=== PATIENT | male | born 1950 | race Caucasian/White ===

== ENCOUNTER → 2025-04-24 10:42 | Outpatient (REF) | payer OTHER, SELFPAY | LOC: RAD 10:42 | PROVIDERS: ATTENDING PHYSICIAN Physician Assistant Medical; FAMILY PHYSICIAN Family Medicine | DX: J18.9 Pneumonia, unspecified organism (principal) | CPT/HCPCS: 71046 ==

== ENCOUNTER 2025-04-27 14:09 | Emergency (ER) | payer OTHER, SELFPAY ==
[2025-04-27 14:15] VITALS: BP 146/79
[2025-04-27 14:49] LABS: % Basophils 0.9 % (0-2); % Eosinophils 2.2 % (0-6); % Immature Granulocytes 0.7 % (0-0.5); % Lymphocytes 19.1 % (20.5-51.1); % Monocytes 4.8 % (1.7-9.3); % Neutrophils 72.3 % (42.2-75.2); Absolute Basophils 0.1 10^3/uL (0-0.2); Absolute Eosinophils 0.2 10^3/uL (0-0.7); Absolute Immature Granulocytes 0.1 10^3/uL (0-0.05); Absolute Monocytes 0.5 10^3/uL (0.1-0.6); Absolute Neutrophils 7.7 10^3/uL (1.4-6.5); Hematocrit 42.7 % (39.0-52.0); Hemoglobin 14.6 g/dL (13.0-18.0); Mean Corp Hgb Conc. 34.2 g/dL (33.0-37.0); Mean Corpuscular Hgb 30.4 pg (27.0-31.0); Mean Platelet Volume 9.4 fL (7.4-10.4); Nucleated Red Blood Cells % 0 % (-); Platelet Count 202 10^3/uL (130-400); Red Cell Dist. Width 12.7 % (11.5-14.5); White Blood Cell Count 10.7 10^3/uL (4.8-10.8)
[2025-04-27 15:07] LABS: ALT (SGPT) 25 U/L (0-50); AST (SGOT) 27 U/L (17-59); Albumin 4.1 g/dl (3.5-5.0); Alkaline Phosphatase 76 U/L (38-126); Blood Urea Nitrogen 17 mg/dl (9-20); Calcium 8.9 mg/dl (8.4-10.2); Carbon Dioxide 27 mmol/L (22-30); Chloride 109 mmol/L (98-107); Glucose 190 mg/dl (70-99); Potassium 5.1 mmol/L (3.5-5.1); Sodium 142 mmol/L (135-145); Total Bilirubin 0.8 mg/dl (0.2-1.3); Total Protein 6.6 g/dl (6.3-8.2); eGFR > 60.00
--- NOTE | 2025-04-27 16:10 | ED.GENMED ---
History of Present Illness
General
Chief Complaint: Breathing Problem
Time Seen by Provider: 04/27/25 15:19
History of Present Illness
History of Present Illness:
Note:
CHIEF COMPLAINT(S)
Persistent cough and shortness of breath.
HISTORY OF PRESENT ILLNESS
The patient is a 74-year-old male presenting with a persistent cough and shortness of breath. He reports that the cough has been present intermittently for most of the current year. The symptoms significantly worsened two weeks ago following a
weekend trip to a wedding. The patient visited his primary care physician, who prescribed an unspecified medication that did not alleviate the symptoms. An X-ray prompted a referral to the emergency department. Although the patient experiences
breathlessness during physical activity, particularly when walking around, he does not report any swelling of the legs. The patient recalls becoming ill at the end of last year but cannot specify the nature of that illness. His father of a
heart attack at 42, though he personally has no known cardiac history.
CHRONIC MEDICAL CONDITIONS SIGNIFICANTLY AFFECTING CARE
None reported.
SOCIAL DETERMINANTS AFFECTING HEALTH
None reported.
SOCIAL HISTORY
The patient states he has occasionally smoked pipes but not habitually.
REVIEW OF SYSTEMS
- Respiratory: Persistent cough and shortness of breath upon exertion.
- Cardiovascular: No personal history of cardiac problems, although family history is significant for heart disease.
- General: No reported leg swelling.
PHYSICAL EXAM
- GEN: WDWN, no distress
- HEENT: Clear oropharynx, no nasal discharge
- Respiratory: Dry crackles heard at the bases of the lungs.
- Cardiovascular: Heart regular in rhythm with no murmurs. No peripheral edema or Jugular Venous Distention noted.
Nursing notes reviewed and vital signs reviewed.
PROBLEM LIST
- Acute: Persistent cough, Shortness of breath
- Chronic: None mentioned
PLAN
The plan includes ordering a Computed Tomography scan to better ascertain the nature of the lung inflammation, conducting additional blood tests, and performing a walk test in the emergency room to observe changes in oxygen saturation. Depending on
the results, the likely management includes potential discharge and follow-up or, if indicated by the CT findings, possible admission to see a foreign exchange dealer, and consideration of steroid therapy to alleviate symptoms. A bronchoscopy and a biopsy
might be future considerations, though not immediate.
DIFFERENTIAL DIAGNOSIS
The Differential Diagnosis includes, in no particular order and is not limited to:
1. Pulmonary fibrosis
2. Interstitial pneumonitis
3. Chronic obstructive pulmonary disease
4. Atypical pneumonia
5. Tuberculosis
6. Heart failure
7. Acute bronchitis
8. Sarcoidosis
9. Asbestosis
10. Drug-induced lung disease
Disposition:
DIAGNOSIS
- Interstitial pneumonitis (ICD-10: J84.9)
SUMMARY OF ENCOUNTER
The patient, a 34-year-old male, presented to the emergency department with a history of shortness of breath and a dry cough persisting for at least six months. An outpatient chest x-ray had shown interstitial pneumonitis, and a CT scan performed in
the emergency department confirmed diffuse pneumonitis. Laboratory testing indicated a negative BNP, pointing towards a pulmonary etiology rather than a cardiac one. The patients symptoms did not suggest a current infection, so antibiotics were
deemed unnecessary.
PLAN
The patient will be started on a corticosteroid taper, given his chronic use of low-dose steroids. He will also be referred for outpatient follow-up with a foreign exchange dealer.
INDEPENDENT INTERPRETATION OF TESTS
- My independent interpretation of the CT confirms diffuse pneumonitis.
- My independent interpretation of the BNP is negative, indicating a pulmonary etiology rather than cardiac.
PATIENT EDUCATION AND COUNSELING
The patient was informed about the diagnosis of interstitial pneumonitis and the rationale for initiating a corticosteroid taper. The importance of follow-up with a foreign exchange dealer was emphasized to monitor his condition and adjust treatment as
necessary.
FOLLOW-UP INSTRUCTIONS
The patient is referred to outpatient pulmonology for follow-up to further evaluate and manage the condition.
MEDICATION RECONCILIATION
The patient will start on a corticosteroid taper as part of the treatment regimen.
MEDICAL DECISION MAKING
Number and Complexity of Problems Addressed: The patients chronic respiratory symptoms and the recent imaging findings of interstitial pneumonitis required a thorough assessment and a detailed management plan. The decision not to start antibiotics
was based on the lack of infectious signs.
Data: The review and analysis of imaging studies and the BNP were pivotal in directing the diagnosis and treatment, confirming a pulmonary pathophysiology.
Risk: Considerations included potential corticosteroid side effects and the need for monitoring by a foreign exchange dealer.
Past History
Past History
ED Past Medical History: HTN, NIDDM and Other
ED Past Surgical History: Other
Phy Exam
Physical Exam
Physical Exam:
.
Scores
Heart Failure Risk
Heart Failure Risk Score: Not Applicable
Course
Orders/Labs/Results
Orders:
Orders
04/27/25 14:18
Electrocardiogram (*1) Urgent
Reason for Study: Shortness of Breath
EKG- Treatment ONCE
04/27/25 14:28
Complete Blood Count/With Diff Urgent
Comprehensive Metabolic Panel Urgent
NT-proBNP Urgent
Comment: ADD ON
04/27/25 16:10
Add On- LAB Urgent
Tests Added?: BNP
CT Chest W/o Iv Contrast Urgent
Comment:
Reason For Exam: dyspnea, pneumonitis
04/27/25 18:57
Prednisone [Deltasone] 40 mg PO NOW STA
Abnormal Lab Results
04/27/25
14:28
Abs Immat Gran (auto) 0.1 H 10^3/uL
(0-0.05)
Absolute Neuts (auto) 7.7 H 10^3/uL
(1.4-6.5)
Immature Gran % 0.7 H %
(0-0.5)
Lymphocytes % 19.1 L %
(20.5-51.1)
Chloride 109 H mmol/L
(98-107)
Glucose 190 H mg/dl
(70-99)
04/27/25 14:28
04/27/25 14:28
Vital Signs
Initial and Last Documented VS:
Initial Vital Signs
Temp Pulse Resp BP Pulse Ox
98.0 F 68 16 146/79 96
04/27/25 14:15 04/27/25 14:15 04/27/25 14:15 04/27/25 14:15 04/27/25 14:15
Last Documented Vital Signs
Temp Pulse Resp BP Pulse Ox
98.0 F 60 22 140/69 95
04/27/25 14:15 04/27/25 19:00 04/27/25 19:00 04/27/25 18:00 04/27/25 19:00
*Pulse Oximetry
Patient hypoxic: no
Comment: 96%
*Critical Care Note
Total Time (30-74mins, 75-104mins- exclusive of procedures): Not Applicable
ED Attending Note
-
Portions of this chart may have been created with voice recognition software.� Occasional wrong word or��sound alike� substitutions may have occurred due to the inherent limitations of voice recognition software.
Discharge Plan
Departure
Patient Disposition: Home (Routine Discharge)
Date of Disposition: 04/27/25
Time of Disposition: 18:55
Patient with high blood pressure during this ER visit?: No
Discharge Problem:
Interstitial pneumonitis
Instructions: Shortness of breath in adults - ED discharge instructions
Prescriptions:
New
prednisone 10 mg tablet
10 mg PO DIRECTED Qty: 30 0RF
Rx Instructions:
40mg PO qd 3d, then 30mg PO qd x 3d, then 20mg PO qd x 3d, then 10mg PO qd x 3d
No Action
pioglitazone 15 MG tablet
15 mg PO HS
atorvastatin 20 MG tablet
20 mg PO HS
levothyroxine 150 MCG tablet
150 mcg PO DAILY
hydrocortisone 20 MG tablet
10 mg PO HS
hydrocortisone 20 MG tablet
20 mg PO DAILY
lisinopril-hydrochlorothiazide 1 EACH tablet
1 ea PO DAILY
sitagliptin phosphate [Januvia] 100 MG tablet
100 mg PO DAILY
testosterone [Axiron] 30 MG/1.5 ML solution in metered pump w/shena
2 unit DAILY
Referrals:
Vinod Gimenez MD [Active, Pulmonary Medicine] - Call in 1-3 days for appt
Maicol Heart DO [Family Provider, Family Practice]
Interventions
Interventions:
*Risk Screen - Suicide Last Done: 04/27/25 14:15
*General Assessment Last Done: 04/27/25 17:26
*Neglect/Abuse Screening Last Done: 04/27/25 14:15
*ED- Fall Risk Assessment Last Done: 04/27/25 17:26
*ED COVID-19 Vaccine History Last Done: 04/27/25 17:26
*Nursing Disposition Last Done: 04/27/25 19:14
ED- Cardiac Assessment Last Done: 04/27/25 17:26
ED- Pulmonary Assessment Last Done: 04/27/25 17:26
Discharge Date and Time
Discharge Date/Time: 04/27/25 19:14
Print Language: FINNISH
[2025-04-27 17:25] VITALS: BP 126/66
[2025-04-27 17:26] VITALS: BMI 33.5
[2025-04-27 17:32] LABS: NT-proBNP 77.2 pg/ml
[2025-04-27 18:00] VITALS: BP 140/69
[2025-04-27] MEDS: DELTASONE 40 MG PO (19:05)
== END 2025-04-27 19:14 | disposition home or self-care (01) ==
LOC: EMR 14:09
PROVIDERS: Emergency Medicine; EMERGENCY PHYSICIAN Student in an Organized Health Care Education/Training Program; FAMILY PHYSICIAN Family Medicine
DX: J84.89 Other specified interstitial pulmonary diseases (principal); F17.290 Nicotine dependence, other tobacco product, uncomplicated
CPT/HCPCS: 99285; 71250; 80053; 83880; 85025; 93005

== ENCOUNTER → 2025-06-12 07:24 | Outpatient (REF) | payer OTHER, SELFPAY | LOC: RCS 07:24 | PROVIDERS: ATTENDING PHYSICIAN Internal Medicine; FAMILY PHYSICIAN Family Medicine | DX: J84.9 Interstitial pulmonary disease, unspecified (principal) | CPT/HCPCS: 93306; Q9950 ==

== ENCOUNTER 2025-10-23 09:30 | Outpatient (RCR) | payer OTHER, SELFPAY | END 2025-10-23 23:59 | disposition home or self-care (01) | LOC: PURB 09:30 | PROVIDERS: ATTENDING PHYSICIAN Internal Medicine; FAMILY PHYSICIAN Family Medicine | DX: J84.9 Interstitial pulmonary disease, unspecified (principal) | CPT/HCPCS: G0237; G0239 ==

== ENCOUNTER 2025-10-25 11:19 | Inpatient (IN) | payer OTHER, SELFPAY ==
[2025-10-23] VITALS (12 sets, daily range): BP systolic 99–154; BP diastolic 58–79; PULSE 65; BMI 33.7; BMI 33.0
[2025-10-23 10:25] LABS: Hematocrit 45.1 % (39.0-52.0); Hemoglobin 15.5 g/dL (13.0-18.0); Mean Corp Hgb Conc. 34.4 g/dL (33.0-37.0); Mean Corpuscular Volume 87.4 fL (80.0-94.0); Nucleated Red Blood Cells % 0 % (-); Platelet Count 231 10^3/uL (130-400); Red Cell Dist. Width 12.8 % (11.5-14.5)
[2025-10-23 10:43] LABS: INR 1.08; PT 14.2 Sec (11.4-14.6)
[2025-10-23 10:47] LABS: ALT (SGPT) 20 U/L (0-50); AST (SGOT) 22 U/L (17-59); Albumin 4.1 g/dl (3.5-5.0); Alkaline Phosphatase 72 U/L (38-126); Blood Urea Nitrogen 20 mg/dl (9-20); Calcium 8.8 mg/dl (8.4-10.2); Carbon Dioxide 23 mmol/L (22-30); Chloride 104 mmol/L (98-107); Glucose 160 mg/dl (70-99); Potassium 4.4 mmol/L (3.5-5.1); Sodium 135 mmol/L (135-145); Total Protein 7.1 g/dl (6.3-8.2); eGFR > 60.00
--- NOTE | 2025-10-23 11:28 | ED.GENMED ---
History of Present Illness
General
Chief Complaint: Breathing Problem
Source: patient
Time Seen by Provider: 10/23/25 11:12
History of Present Illness
History of Present Illness:
31-year-old male presents to the emergency room after being sent here by pulmonary rehab. Patient went for his first pulmonary rehab visit and while obtaining his vital signs staff noted that the patient was hypoxic on room air with a pulse ox of
90%. He also noted that he was tachycardic with heart rate in the 140s. Patient states that over the past several days has been feeling much more short of breath with minimal exertion. He has been using his trilogy inhaler but has not used his
rescue inhaler. He does not use oxygen at home. Patient states he was recently diagnosed with pulmonary fibrosis. Patient does take prednisone because of pituitary surgery in the past. The dose of his hormone replacement has not changed based
upon his pulmonary fibrosis diagnosis. Patient is followed by Dr. Mi for pulmonary.
Past History
Past History
ED Past Medical History: HTN, NIDDM and Other
ED Past Surgical History: Other
Phy Exam
Physical Exam
Physical Exam:
General: Awake, Alert, Oriented X3. On increased work of breathing
Vitals: unremarkable
Head: Atraumatic
Eyes: Pupils equal, EOMI
Throat: Airway intact, no exudates
Neck: Trachea midline
Lungs: Crackles bilaterally
Heart: Regular rate, no murmurs
Abd: Soft, Nontender, No pulsatile mass
Neuro: Nonfocal
Skin: Warm, dry, no rash
Extremities: pulses equal b/l, no edema
Scores
Heart Failure Risk
Heart Failure Risk Score: Not Applicable
Course
Orders/Labs/Results
Orders:
Orders
10/23/25 10:02
Electrocardiogram (*1) Urgent
Reason for Study: Other
Other Reason for Exam: Respiratory Distress
EKG- Treatment ONCE
10/23/25 10:09
Complete Blood Count/With Diff Urgent
Comprehensive Metabolic Panel Urgent
Prothrombin Time Urgent
10/23/25 11:23
Ipratropium/Albuterol Sulfate [Duoneb] 3 ml INH R NOW STA
CR Chest - 2 Views Urgent
Comment:
Reason For Exam: sob, hypoxia
10/23/25 12:26
COVID-19 Antigen Urgent
Source: Nasal Swab
Influenza A+B Rapid Molecular Urgent
RAYO Source: Nasal Swab
Specimen Description:
10/23/25 Dinner
2000 calorie (17 carb) Diabetic
At Your Request: Limited Participation
Does patient need a safe tray?: No
10/23/25 15:16
Dexamethasone Sod Phosphate [Decadron] 10 mg IV NOW STA
10/23/25 15:46
Admit/Transfer Patient As Directed
Co-Sign Provider:
Level of Care: Observation services
Assign to:: Telemetry
Physician / Group: Htay
Diagnosis: Hypoxia / Tachycardia
Reason for Telemetry: Arrhythmia
Date to Stop Telemetry: 10/26/25
Time to Stop Telemetry: 11:00
10/23/25 15:47
PRN Pain Medication Management As Directed
May give lesser potent ordered pain med per pt: Yes
preference::
Protocol:: Medication orders for pain may be administered in a
manner that supports deferring to patient preference
when the pt is:
- Requesting an ordered lesser potent pain medication.
Least to most potent pain medications are defined
as: acetaminophen < NSAID < tramadol < opioids
(morphine, oxycodone, hydromorphone).
- Requesting a lesser dose of the same medication IF
ORDERED.
- Requesting a less intrusive route of administration
if both routes are prescribed by the provider (PO <
IV).
10/23/25 15:48
Code Status As Directed
Resuscitation Status: Full Code
10/23/25 16:02
CT Chest PE Study Urgent
Comment:
Reason For Exam: exertional dyspnea and tachycardia
10/23/25 16:13
NT-proBNP Urgent
Comment: ADD ON
Procalcitonin Urgent
If negative, will antibiotics be d/c'd or not started: Yes
Does the patient have renal or hepatic impairment?: No
Any recent (w/in 48 hrs) physiologic stress (CPR, rhabdo): No
10/23/25 17:59
Acetaminophen [Tylenol] 650 mg PO Q4HPRN PRN
Dextrose 50%-Water [Dextrose 50% Syringe] 12.5 grams IV [id number] PRN
Glucagon [GlucaGen] 1 mg IM PRN PRN
Insulin Aspart High Resistance [Novolog Flexpen-High Resistance] See Protocol SC AC
Ipratropium/Albuterol Sulfate [Duoneb] 3 ml INH R Q4HPRN PRN
10/23/25 17:59
PULMONARY CONSULT Routine
Consulting Provider: Amado Morton
Was physician already notified: Yes
Activity As Directed
Activity Level: Out of Bed-Early Mobility
With Assistance
Bedside Glucose Monitoring As Directed
Frequency: AC&HS
Additional Instructions:: Change to q6h if pt on TPN, tube feeding or not eating
Vital Signs As Directed
Frequency: Per unit guidelines
Pulse Ox/exercise [RESP] Routine
Quantity: 1
Pulse Ox/spot Check [RESP] Routine
Quantity: 1
DX Deep Vein Thrombosis Video Routine
10/23/25 18:00
Enoxaparin Sodium [Lovenox] 40 mg SC QPM
Insulin Aspart Pen [Novolog Flexpen] DOSE units SC QPM
10/23/25 22:00
Atorvastatin [Lipitor] 20 mg PO HS
10/24/25 06:00
Levothyroxine [Synthroid] 150 mcg PO DAILY @ 0600
10/24/25 06:36
Basic Metabolic Panel IN AM
Complete Blood Count/No Diff IN AM
Glycohemoglobin (HgbA1c) IN AM
10/24/25 08:00
Dexamethasone Sod Phosphate [Decadron] 4 mg IV Q12H
Lisinopril [Zestril] 10 mg PO DAILY
testosterone See Dose Instructions TOPICAL DAILY
10/26/25 11:00
DC Protocol for Telemetry ONCE
Abnormal Lab Results
10/23/25
10:09
WBC 15.1 H 10^3/uL
(4.8-10.8)
Abs Immat Gran (auto) 0.1 H 10^3/uL
(0-0.05)
Absolute Neuts (auto) 11.3 H 10^3/uL
(1.4-6.5)
Absolute Monos (auto) 1.1 H 10^3/uL
(0.1-0.6)
Immature Gran % 0.7 H %
(0-0.5)
Lymphocytes % 15.1 L %
(20.5-51.1)
Glucose 160 H mg/dl
(70-99)
Total Bilirubin 1.4 H mg/dl
(0.2-1.3)
10/23/25 10:09
10/23/25 10:09
Vital Signs
Initial and Last Documented VS:
Initial Vital Signs
Temp Pulse Resp BP Pulse Ox
97.5 F 70 24 113/58 95
10/23/25 09:54 10/23/25 09:54 10/23/25 09:54 10/23/25 09:54 10/23/25 09:54
Last Documented Vital Signs
Temp Pulse Resp BP Pulse Ox
98.2 F 84 18 139/78 96
10/24/25 11:40 10/24/25 11:40 10/24/25 11:40 10/24/25 11:40 10/24/25 11:40
MDM/Problems Addressed
Differential Diagnosis Includes:
COVID, influenza, pneumonia, exacerbation of interstitial lung disease
MDM/Problems Addressed:
Patient presents with increasing shortness of breath. He is gotten to the point where he cannot perform any activity without becoming profoundly short of breath. Patient treated with nebs. Chest x-ray today looks very similar to previous chest
x-ray. Discussed with pulmonary. Recommend increasing steroids. Admit for further evaluation and treatment.
*Radiology
Radiology exam reviewed: preliminary read by ED provider (Significant interstitial lung disease, no difference from recent chest x-ray)
*Pulse Oximetry
SaO2: 95
Nasal Cannula flow liters per minute: 2
Patient hypoxic: yes
*EKG
Interpreted by ED Provider?: Yes
Interpretation: abnormal
Heart Rate: 81
Rate: normal
Rhythm: sinus and PAC's
[place]: normal axis
Interval: first degree heart block
QRS Pattern: normal QRS
Ischemia: non-specific ST changes
*Wire Stripping Machine Operator Interpretation
Rate: normal
Interpretation: abnormal
Rhythm: sinus and PAC's
*Critical Care Note
Total Time (30-74mins, 75-104mins- exclusive of procedures): Not Applicable
Patient Management
Social determinants of health affecting care: Strong social support
ED Attending Note
-
Portions of this chart may have been created with voice recognition software.� Occasional wrong word or��sound alike� substitutions may have occurred due to the inherent limitations of voice recognition software.
Discharge Plan
Departure
Patient Disposition: Admit
Date of Disposition: 10/23/25
Time of Disposition: 15:18
Admit to: Med/Surg
Presentation/result/management discussed w/ accepting MD/DO: Hospitalist
Condition: Fair
Discharge Problem:
Hypoxia, Pulmonary fibrosis
Interventions
Interventions:
*Risk Screen - Suicide Last Done: 10/23/25 09:54
*General Assessment Last Done: 10/23/25 11:02
*Neglect/Abuse Screening Last Done: 10/23/25 17:52
*ED COVID-19 Vaccine History Last Done: 10/23/25 15:28
*ED Influenza Vaccine History Last Done: 10/23/25 09:54
[facility] Fall Risk Assessment Tool Last Done: 10/23/25 15:28
*Nursing Disposition Last Done: 10/23/25 17:52
ED- Cardiac Assessment Last Done: 10/23/25 11:02
ED- Pulmonary Assessment Last Done: 10/23/25 11:02
Discharge Date and Time
Discharge Date/Time: 10/23/25 17:53
[2025-10-23] MEDS: DUONEB 3 ML INH (12:28)
[2025-10-23 12:57] LABS: COVID-19 Antigen Negative (Negative)
--- NOTE | 2025-10-23 15:23 | HPS.HSE ---
Family Physician
-
Family Physician: Maicol Heart
Chief Complaint
-
Exertional Hypoxia and Tachycardia
History of Present Illness
Patient is a 75 y/o male past medical history of insulin dependent diabetes mellitus, panhypopituitarism, hypertension, obstructive sleep apnea and recently diagnosed interstitial lung disease who presents with exertional tachycardia. Patient was
scheduled for his first visit at pulmonary rehab today. Upon arrival staffed checked his vital signs and noted his pulse ox was ~90% and his heart rate was 140. Patient had a 6-minute walk test on October 16 which time patient walked 1240ft with
max heart rate 107 and lowest pulse ox 87% on room air. Patient reports over the last few days he has noted episodes of dizziness when ambulating. He reports he is unable to walk household distances without stopping due to these new symptoms. He
denies chest pain or palpitations. He denies lower extremity edema.
Medical History
Past Medical History
Past Medical History: Reports Other
Additional Past Medical History:
Interstitial Lung Disease
Diabetes Mellitus, Type II
Panhypopituitarism
Essential Hypertension
Hyperlipidemia
Obstructive Sleep Apnea
Past Surgical History: Reports Other
Additional Past Surgical History:
Pituitary Surgery
Social History
Tobacco: Non-smoker
Alcohol: Other (Few times a month)
Family History
Family History: Not pertinent
Allergies / Home Medications
Allergies reflects when Allergies were last updated in [employer].
Home Medications with original date entered in [employer]
Allergy/Medication List:
Allergies
Allergy/AdvReac Type Severity Reaction Status Date / Time
Cephalosporins Allergy Unknown Verified 10/23/25 09:54
penicillin V Allergy Unknown Verified 10/23/25 09:54
Penicillins Allergy Unknown Verified 10/23/25 09:54
Home Medications
atorvastatin 20 mg tablet 20 mg PO HS High Cholesterol 12/09/15
levothyroxine 150 mcg tablet 150 mcg PO DAILY Thyroid 12/09/15
albuterol sulfate 90 mcg/actuation aerosol inhaler 2 puff inhalation R Q6HPRN PRN sob 10/23/25
fluticasone fur. 100 mcg-umeclid 62.5 mcg-vilant 25 mcg inhalat.powder (Trelegy Ellipta) 1 inh inhalation R DAILY 10/23/25
insulin aspart U-100 100 unit/mL (3 mL) subcutaneous pen (Novolog FlexPen U-100 Insulin aspart) 30 sliding scale dose SC QPM Diabetes 10/23/25
insulin glargine U-300 conc 300 unit/mL (1.5 mL) subcutaneous pen (Toujeo SoloStar U-300 Insulin) 40 unit SC DAILY Diabetes 10/23/25
lisinopril 10 mg tablet 10 mg PO DAILY Blood Pressure 10/23/25
prednisone 5 mg tablet 5 mg PO DAILY 10/23/25
testosterone 1.62 % (40.5 mg/2.5 gram) transdermal gel packet 40.5 mg topical DAILY Hormonal Agent 10/23/25
Review of Systems
-
History Source: Patient
A 12 point ROS was completed and negative except as noted: Yes
Constitutional: Denies Fever or Chills
Respiratory: Denies Cough
Physical Exam
Vital Signs
Vital Signs
Temp Pulse Resp BP Pulse Ox
97.5 F 67 21 109/78 92
10/23/25 09:54 10/23/25 14:00 10/23/25 14:00 10/23/25 13:00 10/23/25 13:45
Physical Exam
General: Comfortable and Conversant
HEENT: NormoCephalic, Anicteric, Moist mucous membranes and Atraumatic
Respiratory: Rales (Faint rales throughout) and Non Labored Respirations
Cardiac: S1/S2 and Regular Rhythm; No Murmur
GI: Soft, Non Tender, Non Distended and Normal Bowel Sounds
Rectal: Deferred by Provider
Musculoskeletal: No Clubbing, No Cyanosis and No Edema
Skin: Warm and Dry; No Rash
Neuro: Awake, Alert, Oriented and Nonfocal/grossly intact
Psych: Calm
Laboratory Results
-
10/23/25 10:09
10/23/25 10:09
Laboratory Results
PT 14.2 Sec (11.4-14.6) 10/23/25 10:09
INR 1.08 10/23/25 10:09
Total Bilirubin 1.4 mg/dl (0.2-1.3) H 10/23/25 10:09
AST 22 U/L (17-59) 10/23/25 10:09
ALT 20 U/L (0-50) 10/23/25 10:09
Alkaline Phosphatase 72 U/L (38-126) 10/23/25 10:09
Data Reviewed
-
Diagnostic Radiology: Report Reviewed by me
Lab Data: Labs Reviewed by me
Old Records: Reviewed
Impression/Plan
-
Exertional Tachycardia / Hypoxia / Dizziness, possibly related interstitial lung disease
-New symptoms raise concern of possible PE - Check Chest CT
-WBC count is elevated - Check procalcitonin and if elevated start antibiotics for possible pneumonia
-Patient received Decadron 10mg in ED - Continue steroids if above testing is negative
-Continue Trelegy
-Continue DuoNeb
-Consult Pulmonary
Diabetes Mellitus, Type II
-Continue Glargine and NovoLog
-Monitor sugars and continue coverage insulin
Panhypopituitarism
-Continue levothyroxine
-Continue prednisone/Decadron
-Continue testosterone
Essential Hypertension
-Continue lisinopril
Hyperlipidemia
-Continue atorvastatin
Obstructive Sleep Apnea
-Patient reports compliance with CPAP
DVT proph: Lovenox
Code Status: Full Code
[2025-10-23] MEDS: DECADRON 10 MG IV (15:37)
--- NOTE | 2025-10-23 15:57 | W.PN.UPDATE ---
Addendum entered and electronically signed by Philippe Sharma MD 10/24/25 09:53:
[facility] PE protocol
Examination is negative for pulmonary embolism.
Correlating with prior examinations, findings suggest acute exacerbation of chronic interstitial fibrosis, with probable groundglass pneumonitis superimposed on changes of chronic interstitial fibrosis. Main differential consideration would be
interstitial edema superimposed on chronic fibrotic changes.
No significant pleural effusions are identified. No evidence for pericardial effusion.
Original Note:
Update Note
Progress Note Update
This note serves as an addendum to the H&P by television repairer Marquis COLEY
HPI
31M recently Dxed HX pulmonary fibrosis, on chr PO iatrogenic Diaz hypopituitarism on HRT ( PO prednisone, LT4, Testosterone)
The dose of his hormone replacement has not changed based upon his pulmonary fibrosis diagnosis.
- severe exertional dyspnea and tachycardia
- Ambulatory desaturation with 6 Mins walk test at Pul rehab
- Dizziness with ambulation
- He does not use oxygen at home.
Patient is followed by Dr. Lit Castro for pulmonary.
Relevant VS
Temp Pulse Resp BP Pulse Ox
97.5 F 62 15 99/77 95
10/23/25 09:54 10/23/25 15:30 10/23/25 15:30 10/23/25 15:00 10/23/25 15:30
PE
Gen: NAD
HEENT:, large mid line scar on the cranium , mist OM
Neck:supple
Lungs: CTA , rales at bases
Cor:RRR S1 S2
Abdomen:�soft benign
BALLET SOLOIST: AAO3 NFND
MS: no edema
Psych: Nl mood and affect
Relevant Data
Labs
10/23/25 10/23/25
10:09 12:26
WBC 15.1 H
Carbon Dioxide 23
Creatinine 0.8
eGFR > 60.00
Total Bilirubin 1.4 H
SARS-CoV-2 Antigen Negative
CXR report pending
06/12/25 TTE
Normal left ventricular size and function. Normal regional wall motion. Mild concentric left ventricular hypertrophy.
LV ejection fraction is 55-60% by Haddad's method of discs. Normal diastolic function.
Upper normal right ventricular size and normal function.
No tricuspid regurgitation is seen.
Right heart pressures could not be determined.
No prior study available for comparison.
NO PRIOR hospitalist admission:
ASSESSMENT & PLAN
Pending Rx reconciliation
Severe exertional dyspnea, tachycardia with ambulatory desaturation, dizziness with ambulation
Currently no O2 - 95 % on RA
HX Pul Fibrosis
- CTC PE to r/o PTE
- Pul consult
HX diaz hypopituitarism s/p pituitary resection at age 21
- currently on HRT
- c/w HOME HEALTH REGISTERED NURSE PO prednisone, LT4, Testosterone
- Known to DR Paulina Gates ( Endo )
IDDM
- c/w HOME HEALTH REGISTERED NURSE Insulin regime
- add ISS low
pHTN
- c/w Lisinopril
HLD
- c/w Atorvastatin
DVT Px: LMWH
Ful Code:
OBS TLM
[2025-10-23 16:54] LABS: Procalcitonin < 0.05 ng/ml (0.0-0.25)
[2025-10-23 18:17] LABS: Glucose - Point of Care 220 mg/dl (70-99)
[2025-10-23] MEDS: NOVOLOG FLEXPEN-HIGH RESISTANCE 4 UNITS SC (18:42)
[2025-10-23] MEDS: LOVENOX 40 MG SC (18:43)
[2025-10-23] MEDS: SYMBICORT 80/4.5 MCG INHALER 2 PUFF INH (19:14)
--- NOTE | 2025-10-23 19:32 | PTCARENOTE ---
Pt admitted into room 405-1. AAOx3, ambulated into room with standby assist. VSS. Tele showing NSR with 1st degree block. O2 sat 94% on RA. Pt oriented to room and has call langston within reach.
[2025-10-23] MEDS: LIPITOR 20 MG PO (21:45)
[2025-10-23 21:47] LABS: Glucose - Point of Care 306 mg/dl (70-99)
[2025-10-23] MEDS: NOVOLOG FLEXPEN 10 UNITS SC (22:06)
[2025-10-24] VITALS (7 sets, daily range): BP systolic 109–140; BP diastolic 63–88; PULSE 68
[2025-10-24 00:22] LABS: Glucose - Point of Care 267 mg/dl (70-99)
[2025-10-24] MEDS: SYNTHROID 150 MCG PO (05:56)
[2025-10-24 07:41] LABS: Hematocrit 42.8 % (39.0-52.0); Hemoglobin 14.9 g/dL (13.0-18.0); Mean Corp Hgb Conc. 34.8 g/dL (33.0-37.0); Mean Corpuscular Volume 86.6 fL (80.0-94.0); Platelet Count 226 10^3/uL (130-400); Red Cell Dist. Width 12.4 % (11.5-14.5)
[2025-10-24] MEDS: SPIRIVA RESPIMAT 2.5 MCG 2 PUFF INH (07:54)
[2025-10-24] MEDS: SYMBICORT 80/4.5 MCG INHALER 2 PUFF INH ×2 (07:54→19:27)
[2025-10-24 07:59] LABS: Glucose - Point of Care 213 mg/dl (70-99)
[2025-10-24 08:16] LABS: Blood Urea Nitrogen 21 mg/dl (9-20); Calcium 9.0 mg/dl (8.4-10.2); Carbon Dioxide 22 mmol/L (22-30); Chloride 103 mmol/L (98-107); Estimated Creatinine Clearance 118 ml/min; Glucose 225 mg/dl (70-99); Potassium 5.2 mmol/L (3.5-5.1); Sodium 134 mmol/L (135-145); eGFR > 60.00
[2025-10-24 08:41] LABS: Glycohemoglobin (HgbA1c) 6.5 % (4.0-5.9)
[2025-10-24] MEDS: NOVOLOG FLEXPEN-HIGH RESISTANCE 4 UNITS SC ×2 (08:50→12:40)
[2025-10-24] MEDS: ZESTRIL 10 MG PO (08:50)
[2025-10-24] MEDS: FLUSH (NSS) 1 FLUSH IV (08:51)
[2025-10-24] MEDS: DECADRON 4 MG IV ×2 (08:51→21:53)
[2025-10-24] MEDS: LANTUS 0.32 UNITS SC (08:52)
--- NOTE | 2025-10-24 10:53 | CON.PUL ---
Consultation
Consultation Request
Date/Time Consultation Requested: 10/24/2025-8 AM
Date/Time Consultation Performed: 10/24/2025-8:30 AM
Requesting Provider: Hospitalist
Performing Provider: Dr. Morton
Reason for Consultation: Tachycardia/lightheadedness/hypoxemia
Medical History
-
Chief Complaint: Shortness of breath
History of Present Illness:
75-year-old nonsmoking obese male with underlying interstitial lung disease followed by Dr. Meza not on antifungal antibiotics, diabetes, panhypopituitarism , hypertension, ALEXIS on CPAP, developed hypoxemia and tachycardia pulmonary rehabilitation
and went to the emergency where he felt better with oxygen supplementation-pulmonary consulted for exertional hypoxemia/interstitial lung disease 10/24/25. He is feeling improved on supplemental option. He feels like he might need oxygen with
exertion. He denies any chest pain, chest congestion, cough, hemoptysis, pleurisy, abdominal pain, nausea, progressive leg swelling or focal weakness. He does use CPAP at nighttime.
Past Medical History
Past Medical History: None ( Interstitial lung disease followed by Dr. Meza-not on anti-fibrotic's. Diabetes. Hypertension. Hyperlipidemia. ALEXIS on CPAP. Panhypopituitarism/pituitary surgery.)
Social History
Tobacco: Non-smoker
Alcohol: Occasional
Drug: None
Living: With Family
Occupational Exposures: no known asbestos exposure
Environmental Exposures: No known tuberculosis exposure
Family History
Family History: Reviewed & Not Pertinent
Allergies / Home Medications
Allergies
Allergy/AdvReac Type Severity Reaction Status Date / Time
Cephalosporins Allergy Unknown Verified 10/23/25 18:06
penicillin V Allergy Unknown Verified 10/23/25 18:06
Penicillins Allergy Unknown Verified 10/23/25 18:06
Home Medications
�Medication �Instructions �Recorded �Confirmed �Last Taken �Type
atorvastatin 20 mg tablet 20 mg PO HS High Cholesterol 12/09/15 10/23/25 10/22/25 History
levothyroxine 150 mcg tablet 150 mcg PO DAILY Thyroid 12/09/15 10/23/25 10/22/25 History
albuterol sulfate 90 mcg/actuation 2 puff inhalation R Q6HPRN PRN sob 10/23/25 10/23/25 Unknown History
aerosol inhaler
fluticasone fur. 100 mcg-umeclid 1 inh inhalation R DAILY 10/23/25 10/23/25 10/23/25 History
62.5 mcg-vilant 25 mcg
inhalat.powder (Trelegy Ellipta)
insulin aspart U-100 100 unit/mL 30 sliding scale dose SC QPM 10/23/25 10/23/25 10/22/25 History
(3 mL) subcutaneous pen (Novolog Diabetes
FlexPen U-100 Insulin aspart)
insulin glargine U-300 conc 300 40 unit SC DAILY Diabetes 10/23/25 10/23/25 10/22/25 History
unit/mL (1.5 mL) subcutaneous pen
(Toujeo SoloStar U-300 Insulin)
lisinopril 10 mg tablet 10 mg PO DAILY Blood Pressure 10/23/25 10/23/25 10/23/25 History
prednisone 5 mg tablet 5 mg PO DAILY 10/23/25 10/23/25 10/23/25 History
testosterone 1.62 % (40.5 mg/2.5 40.5 mg topical DAILY Hormonal 10/23/25 10/23/25 10/23/25 History
gram) transdermal gel packet Agent
Review of Systems
-
Unable to Obtain full review of systems at this time due to: Other ( per HPI)
Vitals / Labs / Diagnostic Testing
Vital Signs
Temp Pulse Resp BP Pulse Ox
98 F 68 18 140/88 93
10/24/25 08:07 10/24/25 08:50 10/24/25 08:07 10/24/25 08:50 10/24/25 08:43
Lab Data
10/24/25 06:36
10/24/25 06:36
Microbiology
10/23/25 12:26 Nasal Swab Influenza Types A & B (YANNI) - Final
Negative for Influenza A & B, NAAT
Negative results must be combined with clinical observations
and patient history.
Nucleic Acid Amplification test (NAAT)performed on the
[employer] platform.
Diagnostic Testing:
Physical Exam
-
Exam:
Well-nourished and well-developed in no apparent distress
HEENT-atraumatic, normocephalic, thick neck
Neck-supple, no JVD, no bruit
Heart-regular rate and rhythm-no murmurs, rubs or gallops
Chest with crackles at both bases, mild prolonged expiratory time, no wheezes
Back-no tenderness
Abdomen-soft, nontender, nondistended, no hepatosplenomegaly
Extremities-no cyanosis, clubbing, edema and good peripheral pulses
Integument-intact, no rashes, lesions or ecchymosis
Neurology-alert and oriented, nonfocal motor and sensory exam
Assessment
-
75-year-old nonsmoking obese male with underlying interstitial lung disease followed by Dr. Meza not on antifungal antibiotics, diabetes, panhypopituitarism , hypertension, ALEXIS on CPAP, developed hypoxemia and tachycardia pulmonary rehabilitation
and went to the emergency where he felt better with oxygen supplementation-pulmonary consulted for exertional hypoxemia/interstitial lung disease 10/24/25.
Exertional hypoxemia-86% on room air in pulmonary rehabilitation, tachycardia, dizziness
Interstitial lung disease/pulmonary fibrosis.
Mild leukocytosis
Hyperglycemia-blood sugar 225-A1c 6.5
Mild hyperkalemia
Conditions present prior to admission:
Interstitial lung disease followed by Dr. Meza-not on anti-fibrotic's.
Diabetes.
Hypertension.
Hyperlipidemia.
Obesity.
ALEXIS on CPAP.
Panhypopituitarism/pituitary surgery.
Plan
Historically, shortness of breath is recently increased and suspect he has exertional hypoxemia and possible interstitial lung disease flare-reviewed. Outpatient workup-I cannot find ILD. Serology, or any previous attempts at inflammation
reduction-course of steroids or anti-fibrotic agents.
Supplemental oxygen.
Check rest and exercise oximetry on room air
Patient on Trelogy as an outpatient-Symbicort and Spiriva while hospitalized
Steroids-eventually converted to prednisone 60 mg with slow taper.
ILD serology as an outpatient.
Check ESR and C-reactive protein..
If steroid unresponsive, then consider Ofev or below
We also discussed the potential addition of Nerandomilast (Jascayd) , which is a new FDA approved (July 2025) treatment options for adults with IPF. It is a preferential inhibitor of phosphodiesterase-E4B and has been shown to reduce forced
vital capacity decline versus placebo.
Last echocardiogram was normal left ventricular function-proBNP negative- doubt cardiogenic component
Monitor blood sugar.
Insulin supplementation as needed.
DVT prophylaxis-on Lovenox.
Nutrition
Early mobilization
Last saw Dr. Meza 07/26/25-outpatient pulmonary dilation in the next 1-2 weeks
Diagnostic data:
CT chest 04/27/25: Widespread prominent bilateral interstitial markings especially peripherally most predominantly in the right upper lobe.� Acute versus chronic interstitial process..
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
PFTs 07/26/25: FEV1 2.33L 77%, FVC 2.57L 62%, ratio 91.� TLC 3.28L 44%, DLCO 48% (severe restriction, moderate diffusion impairment)
PFTs 05/04/25: FEV1 2.12L 65%, FVC 2.38L 53%, ratio 89.� TLC 3.13L 42%, DLCO 47% (severe restriction, moderate diffusion).
PSG/Split 01/11/13: AHI 22.3, O2 rudy 73%, CPAP titrated to 16cm water
PSG 07/24/17: AHI 41, O2 rudy 70%.
ECHO 06/12/25: Normal left ventricular size and function. Normal regional wall motion. Mild concentric left ventricular hypertrophy. LV ejection fraction is 55-60% by Haddad's method of discs. Normal diastolic function. Upper normal right
ventricular size and normal function. No tricuspid regurgitation is seen. Right heart pressures could not be determined.� No prior study available for comparison.
Data Reviewed
-
PFT: Report reviewed by me
EKG: Report reviewed by me
Radiology: Image personally visualized and interpreted and Report reviewed by me
CT Scan: Image personally visualized and interpreted and Report reviewed by me
Medical Tests (Nuc Med, Echo etc): Report reviewed by me
Labs: Labs reviewed by me
Old Records: Reviewed
Total Time Spent with Patient (in minutes): 55
[2025-10-24 11:54] LABS: Glucose - Point of Care 222 mg/dl (70-99)
--- NOTE | 2025-10-24 12:05 | W.PN.HOSP.TC ---
Today's Communication/Plan
-
Monitor vital signs see plan
Continue with IV steroid
Check EKG
Pulmonary evaluation
Monitor on telemetry
Assessment / Plan
Assessment / Plan
General: Comfortable and Conversant
HEENT: NormoCephalic, Anicteric, Moist mucous membranes and Atraumatic
Respiratory: Rales (throughout) and Non Labored Respirations
Cardiac: S1/S2 and Regular Rhythm
GI: Soft, Non Tender, Non Distended and Normal Bowel Sounds
Musculoskeletal: No Edema
Neuro: Awake, Alert, Oriented and Nonfocal/grossly intact
Psych: Calm
Exertional Tachycardia / Hypoxia / Dizziness, possibly related interstitial lung disease
CT chest negative for PE, however does show signs of acute exacerbation of chronic interstitial fibrosis with possibility of superimposed pneumonitis.
Procalcitonin negative, observe off antibiotic
Continue with IV steroid
-Continue Trelegy
-Continue DuoNeb
Pulmonary evaluation
Exertional tachycardia
EKG with PACs
Echo 06/08 with preserved EF. consider repeating echo if do not improve
Diabetes Mellitus, Type II
-Continue Glargine and NovoLog. odd regimen of NovoLog only once daily. Will split the dose with meals. Blood sugar high here.
-Monitor sugars and continue coverage insulin
Panhypopituitarism
-Continue levothyroxine
-Continue prednisone/Decadron. Restart home dose prednisone once done with Decadron
-Continue testosterone
Mild hyperkalemia
Monitor
Hyponatremia
Monitor
Essential Hypertension
-Continue lisinopril
Hyperlipidemia
-Continue atorvastatin
Obstructive Sleep Apnea
-Patient reports compliance with CPAP
DVT proph: Lovenox
Code Status: Full Code
I spent a total of 52 minutes with the patient or on the floor. More than 50% of this time involved counseling and coordination of care.
Anticipated Discharge: 24 - 48 hours
Subjective/Interval History
-
Date of Service: October 24, 2025
Denies pain
Objective Data
-
Labs:
Laboratory Results
10/24/25
06:36
WBC 12.2 H
Hgb 14.9
Hct 42.8
Plt Count 226
Sodium 134 L
Potassium 5.2 H
Chloride 103
Carbon Dioxide 22
BUN 21 H
Creatinine 0.7
Glucose 225 H
Calcium 9.0
Vital Signs:
Vital Signs
Temp Pulse Resp BP Pulse Ox
98.2 F 84 18 139/78 96
10/24/25 11:40 10/24/25 11:40 10/24/25 11:40 10/24/25 11:40 10/24/25 11:40
I&O
10/23/25 10/24/25 10/25/25
06:59 06:59 06:59
Intake Total 0 / 0
Balance 0 / 0
[2025-10-24 14:54] LABS: Troponin I 0.014 ng/ml
[2025-10-24 16:41] LABS: Glucose - Point of Care 317 mg/dl (70-99)
--- NOTE | 2025-10-24 17:09 | PTCARENOTE ---
Pt AAO x3, NAPIER well, ambulatory in room/castaneda; ashanti well; denies weakness/dizziness. VSS. Telemetry:NSR. On room air- pulse ox 98%, pt with (+)BRADY.
Abd large, soft, ashanti PO well. Voiding in BR without difficulty. Resting in bed at present, no c/o. Will continue to monitor.
[2025-10-24] MEDS: NOVOLOG FLEXPEN-HIGH RESISTANCE 10 UNITS SC (17:47)
[2025-10-24] MEDS: LOVENOX 40 MG SC (17:47)
[2025-10-24] MEDS: NOVOLOG FLEXPEN 10 UNITS SC (17:49)
[2025-10-24 21:22] LABS: Glucose - Point of Care 259 mg/dl (70-99)
[2025-10-24] MEDS: LIPITOR 20 MG PO (21:53)
[2025-10-25] VITALS (9 sets, daily range): BP systolic 125–145; BP diastolic 57–70; PULSE 54–59; O2SAT 95
[2025-10-25] MEDS: SYNTHROID 150 MCG PO (05:52)
[2025-10-25 07:09] LABS: Glucose - Point of Care 228 mg/dl (70-99)
[2025-10-25 07:29] LABS: Hematocrit 43.2 % (39.0-52.0); Hemoglobin 14.8 g/dL (13.0-18.0); Mean Corp Hgb Conc. 34.3 g/dL (33.0-37.0); Mean Corpuscular Volume 87.3 fL (80.0-94.0); Nucleated Red Blood Cells % 0 % (-); Platelet Count 259 10^3/uL (130-400); Red Cell Dist. Width 12.5 % (11.5-14.5)
[2025-10-25] MEDS: SYMBICORT 80/4.5 MCG INHALER 2 PUFF INH ×2 (07:49→20:06)
[2025-10-25] MEDS: SPIRIVA RESPIMAT 2.5 MCG 2 PUFF INH (07:49)
[2025-10-25 08:06] LABS: C-Reactive Protein 42.40 mg/L (0.0-10.00)
[2025-10-25 08:16] LABS: ALT (SGPT) 25 U/L (0-50); AST (SGOT) 24 U/L (17-59); Albumin 4.2 g/dl (3.5-5.0); Alkaline Phosphatase 80 U/L (38-126); Blood Urea Nitrogen 22 mg/dl (9-20); Calcium 9.3 mg/dl (8.4-10.2); Carbon Dioxide 21 mmol/L (22-30); Chloride 103 mmol/L (98-107); Estimated Creatinine Clearance 118 ml/min; Glucose 225 mg/dl (70-99); Magnesium 2.2 mg/dl (1.6-2.3); Potassium 4.5 mmol/L (3.5-5.1); Sodium 136 mmol/L (135-145); Total Protein 7.1 g/dl (6.3-8.2); eGFR > 60.00
[2025-10-25] MEDS: ZESTRIL 10 MG PO (08:54)
[2025-10-25] MEDS: NOVOLOG FLEXPEN 10 UNITS SC (08:54)
[2025-10-25] MEDS: LANTUS 0.32 UNITS SC (08:54)
[2025-10-25] MEDS: DECADRON 4 MG IV ×2 (08:54→21:18)
[2025-10-25] MEDS: NOVOLOG FLEXPEN-HIGH RESISTANCE 4 UNITS SC (08:55)
--- NOTE | 2025-10-25 10:38 | W.PN.PUL.V3 ---
Today's Communication / Plan
-
.
Home oxygen.
Prednisone with slow taper until seen in the office.
Interstitial lung disease serology consideration towards anti-fibrotic's as an outpatient
Assessment
-
75-year-old nonsmoking obese male with underlying interstitial lung disease followed by Dr. Meza not on antifungal antibiotics, diabetes, panhypopituitarism , hypertension, ALEXIS on CPAP, developed hypoxemia and tachycardia pulmonary rehabilitation
and went to the emergency where he felt better with oxygen supplementation-pulmonary consulted for exertional hypoxemia/interstitial lung disease 10/24/25.
Exertional hypoxemia-86% on room air in pulmonary rehabilitation, tachycardia, dizziness
Interstitial lung disease/pulmonary fibrosis.
Mild leukocytosis
Hyperglycemia-blood sugar 225-A1c 6.5
Mild hyperkalemia
Exertional tachycardia-out of proportion to shortness of breath and hypoxemia
Conditions present prior to admission:
Interstitial lung disease followed by Dr. Meza-not on anti-fibrotic's.
Diabetes.
Hypertension.
Hyperlipidemia.
Obesity.
ALEXIS on CPAP.
Panhypopituitarism/pituitary surgery.
Plan
Historically, shortness of breath is recently increased and suspect he has exertional hypoxemia and possible interstitial lung disease flare-reviewed. Outpatient workup-I cannot find ILD. Serology, or any previous attempts at inflammation
reduction-course of steroids or anti-fibrotic agents.
Supplemental oxygen-suspect will need home oxygen
Check rest and exercise oximetry on room air again 10/26/25-suspect will need home oxygen
Patient on Trelogy as an outpatient-Symbicort and Spiriva while hospitalized.
CPAP at night
Steroids-eventually converted to prednisone 60 mg with slow taper.
ILD serology as an outpatient.
Check ESR and C-reactive protein..
If steroid unresponsive, then consider Ofev or below
We also discussed the potential addition of Nerandomilast (Jascayd) , which is a new FDA approved (July 2025) treatment options for adults with IPF. It is a preferential inhibitor of phosphodiesterase-E4B and has been shown to reduce forced
vital capacity decline versus placebo.
Last echocardiogram was normal left ventricular function-proBNP negative- doubt cardiogenic component
Monitor blood sugar.
Insulin supplementation as needed-especially in light of steroids
DVT prophylaxis-on Lovenox.
Nutrition
Early mobilization.
Favor if blood sugars/insulin can tolerate prednisone 60 mg daily for 1 week, then 50 mg daily for 1 week dominant 40 mg daily with subsequent taper for outpatient pulmonary
Selene reviewed with at bedside-pathophysiology of pulmonary fibrosis, potential etiologies-steroid responsive her steroid unresponsive, and treatment options including ofjovana and Ayse reviewed with then
Last saw Dr. Meza 07/26/25-outpatient pulmonary dilation in the next 1-2 weeks
Diagnostic data:
CT chest 04/27/25: Widespread prominent bilateral interstitial markings especially peripherally most predominantly in the right upper lobe.� Acute versus chronic interstitial process..
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
PFTs 07/26/25: FEV1 2.33L 77%, FVC 2.57L 62%, ratio 91.� TLC 3.28L 44%, DLCO 48% (severe restriction, moderate diffusion impairment)
PFTs 05/04/25: FEV1 2.12L 65%, FVC 2.38L 53%, ratio 89.� TLC 3.13L 42%, DLCO 47% (severe restriction, moderate diffusion).
PSG/Split 01/11/13: AHI 22.3, O2 rudy 73%, CPAP titrated to 16cm water
PSG 07/24/17: AHI 41, O2 rudy 70%.
ECHO 06/12/25: Normal left ventricular size and function. Normal regional wall motion. Mild concentric left ventricular hypertrophy. LV ejection fraction is 55-60% by Haddad's method of discs. Normal diastolic function. Upper normal right
ventricular size and normal function. No tricuspid regurgitation is seen. Right heart pressures could not be determined.� No prior study available for comparison.
Subjective Data
-
Date of Service:
Date of Service: October 25, 2025
Chief Complaint: Pulmonary Follow Up and Dyspnea Follow Up
Subjective:
Continues to have shortness of breath with exertion, no chest pain, abdominal pain
Review of Systems
General: Other (Per HPI)
Objective Data
Data Reviewed
Vital Signs / I&O:
Vital Signs
Temp Pulse Resp BP Pulse Ox
98.3 F 63 16 138/70 95
10/25/25 07:00 10/25/25 08:54 10/25/25 08:00 10/25/25 08:54 10/25/25 08:00
Intake and Output
10/24/25 10/25/25 10/26/25
06:59 06:59 06:59
Intake Total 0 / 0 1020 / 1020 420 / 420
Balance 0 / 0 1020 / 1020 420 / 420
SaO2: 95
Nasal Cannula flow liters per minute: 2
Physical Exam
General: Respiratory Distress (n) and Comfortable
HEENT: Normocephalic, Anicteric and Moist Mucous Membranes
Cardiovascular: Regular Rhythm
Respiratory: Wheeze (n), Crackles ( bibasilar mcfp up), Rhonchi (n), Non-Labored Respirations (n), Accessory Resp Muscle Use (n) and Stridor (n)
GI: Soft, Non Distended and Non Tender
Neurology: Awake, Alert and No Motor Deficits
Skin: Warm, Good Color, Cyanosis (n), Jaundice (n) and Rash (n)
Labs/Micro/Reports
Lab Data
10/25/25 06:56
10/25/25 06:56
Microbiology
10/23/25 12:26 Nasal Swab Influenza Types A & B (YANNI) - Final
Negative for Influenza A & B, NAAT
Negative results must be combined with clinical observations
and patient history.
Nucleic Acid Amplification test (NAAT)performed on the
[employer] platform.
--- NOTE | 2025-10-25 11:19 | W.PN.HOSP.TC ---
Today's Communication/Plan
-
increase insulin to home dosing
decrease diet to 1800 chas
continue IV steroids
follow pulm recs
repeat home O2 eval in AM
Assessment / Plan
Assessment / Plan
Exam:
General: Comfortable and Conversant
HEENT: NormoCephalic, Anicteric, Moist mucous membranes and Atraumatic
Respiratory: Rales (throughout) and Non Labored Respirations
Cardiac: S1/S2 and Regular Rhythm
GI: Soft, Non Tender, Non Distended and Normal Bowel Sounds
Musculoskeletal: No Edema
Neuro: Awake, Alert, Oriented and Nonfocal/grossly intact
Psych: Calm
Assessment:
Exertional Tachycardia/Hypoxia/Dizziness, possibly related interstitial lung disease
- CT chest negative for PE, however does show signs of acute exacerbation of chronic interstitial fibrosis with possibility of superimposed pneumonitis.
- Procalcitonin negative, observe off antibiotic
- continue with IV steroid; taper at discharged
- continue Trelegy or equivalent: Symbicort and Spiriva while hospitalized
- continue DuoNeb
- pulmonary following
- home O2 evaluation repeat 10/27
Exertional tachycardia
- EKG with PACs
- Echo 06/08 with preserved EF. consider repeating echo if do not improve
Diabetes Mellitus, Type II
- continue Glargine 40 units
- Novolog 30 units with dinner time
- continue high SSI
- A1c: 6.5%
Panhypopituitarism
- continue levothyroxine
- continue prednisone/Decadron. Restart home dose prednisone once done with Decadron
- continue testosterone
Mild hyperkalemia
Monitor
Hyponatremia
- follow BMP
Essential Hypertension
- continue lisinopril
Hyperlipidemia
- continue atorvastatin
Obstructive Sleep Apnea
- Patient reports compliance with CPAP
DVT ppx: Lovenox
Code: Full
Anticipated Discharge: 24 - 48 hours
Subjective/Interval History
-
Date of Service: October 25, 2025
reports improvement in SOB, less wheezing
on RA at rest currently
Objective Data
-
Labs:
Laboratory Results
10/25/25
06:56
WBC 18.3 H
Hgb 14.8
Hct 43.2
Plt Count 259
Sodium 136
Potassium 4.5
Chloride 103
Carbon Dioxide 21 L
BUN 22 H
Creatinine 0.7
Glucose 225 H
Calcium 9.3
Total Bilirubin 0.4 D
AST 24
ALT 25
Alkaline Phosphatase 80
Vital Signs:
Vital Signs
Temp Pulse Resp BP Pulse Ox
98.3 F 63 16 138/70 95
10/25/25 07:00 10/25/25 08:54 10/25/25 08:00 10/25/25 08:54 10/25/25 10:38
I&O
10/24/25 10/25/25 10/26/25
06:59 06:59 06:59
Intake Total 0 / 0 1020 / 1020 420 / 420
Balance 0 / 0 1020 / 1020 420 / 420
Data Reviewed
-
Total Time Spent with Patient (in minutes): 42
Labs: Labs Reviewed by me
[2025-10-25 11:50] LABS: Glucose - Point of Care 336 mg/dl (70-99)
[2025-10-25] MEDS: NOVOLOG FLEXPEN-HIGH RESISTANCE 10 UNITS SC ×2 (12:23→17:01)
[2025-10-25] MEDS: LANTUS 0.08 UNITS SC (12:23)
[2025-10-25] MEDS: NOVOLOG FLEXPEN SC (12:26)
--- NOTE | 2025-10-25 13:15 | PTOTSP ---
Pt presents to OT at mod I/I level with basic self care, transfers and functional mobility in room without AD. Provided education in energy conservation and work simplification strategies to maximize occupational performance. No further skilled OT
indicated at this time.
[2025-10-25 16:27] LABS: Glucose - Point of Care 341 mg/dl (70-99)
[2025-10-25] MEDS: NOVOLOG FLEXPEN 30 UNITS SC (17:01)
[2025-10-25] MEDS: LOVENOX 40 MG SC (17:03)
[2025-10-25 21:18] LABS: Glucose - Point of Care 290 mg/dl (70-99)
[2025-10-25] MEDS: LIPITOR 20 MG PO (21:18)
--- NOTE | 2025-10-26 02:23 | W.PN.UPDATE ---
Update Note
Progress Note Update
RN notes noctural bradycardia (asymptomatic) HR 40s with dips into 30s at times. When awake HR 50-60s. Does not take AV node blockers.
Will monitor closely
--- NOTE | 2025-10-26 02:44 | PTCARENOTE ---
Overnight while sleeping, patient's heart rate ranges between 30s-40s on telemetry. Patient denies any associated symptoms. DANCER OR CHOREOGRAPHER made aware, no new orders at time. Plan of care ongoing.
[2025-10-26 03:54] VITALS: BP 138/71
[2025-10-26] MEDS: SYNTHROID 150 MCG PO (06:05)
[2025-10-26] MEDS: SYMBICORT 80/4.5 MCG INHALER 2 PUFF INH (07:31)
[2025-10-26] MEDS: SPIRIVA RESPIMAT 2.5 MCG 2 PUFF INH (07:31)
[2025-10-26 07:49] LABS: Glucose - Point of Care 170 mg/dl (70-99)
[2025-10-26 07:55] VITALS: BP 127/74
[2025-10-26] MEDS: DECADRON 4 MG IV (07:57)
[2025-10-26] MEDS: LANTUS 0.4 UNITS SC (07:58)
[2025-10-26] MEDS: ZESTRIL 10 MG PO (07:58)
[2025-10-26] MEDS: NOVOLOG FLEXPEN-HIGH RESISTANCE 2 UNITS SC (07:59)
[2025-10-26 10:09] LABS: Blood Urea Nitrogen 26 mg/dl (9-20); Calcium 9.4 mg/dl (8.4-10.2); Carbon Dioxide 27 mmol/L (22-30); Chloride 103 mmol/L (98-107); Estimated Creatinine Clearance 104 ml/min; Glucose 201 mg/dl (70-99); Potassium 5.1 mmol/L (3.5-5.1); Sodium 138 mmol/L (135-145); eGFR > 60.00
[2025-10-26 10:12] LABS: C-Reactive Protein 23.80 mg/L (0.0-10.00)
--- NOTE | 2025-10-26 10:23 | W.PN.PUL.V3 ---
Today's Communication / Plan
-
Prednisone taper
Respiratory status is stabilized-slow prednisone to patient pulmonary follow-up with supplemental if qualifies-pulmonary will sign off please call with questions
Assessment
-
75-year-old nonsmoking obese male with underlying interstitial lung disease followed by Dr. Meza not on antifungal antibiotics, diabetes, panhypopituitarism , hypertension, ALEXIS on CPAP, developed hypoxemia and tachycardia pulmonary rehabilitation
and went to the emergency where he felt better with oxygen supplementation-pulmonary consulted for exertional hypoxemia/interstitial lung disease 10/24/25.
Exertional hypoxemia-86% on room air in pulmonary rehabilitation, tachycardia, dizziness
Interstitial lung disease/pulmonary fibrosis.
Mild leukocytosis
Hyperglycemia-blood sugar 225-A1c 6.5
Mild hyperkalemia
Exertional tachycardia-out of proportion to shortness of breath and hypoxemia
Nocturnal bradycardia
Conditions present prior to admission:
Interstitial lung disease followed by Dr. Meza-not on anti-fibrotic's.
Diabetes.
Hypertension.
Hyperlipidemia.
Obesity.
ALEXIS on CPAP.
Panhypopituitarism/pituitary surgery.
Plan
Historically, shortness of breath is recently increased and suspect he has exertional hypoxemia and possible interstitial lung disease flare-reviewed. Outpatient workup-I cannot find ILD. Serology, or any previous attempts at inflammation
reduction-course of steroids or anti-fibrotic agents.
Supplemental oxygen-suspect will need home oxygen
Check rest and exercise oximetry on room air again 10/26/25-suspect will need home oxygen
Patient on Trelogy as an outpatient-Symbicort and Spiriva while hospitalized.
CPAP at night continues
Steroids-eventually converted to prednisone 60 mg with slow taper.
ILD serology as an outpatient.
Check ESR and C-reactive protein..
If steroid unresponsive, then consider Ofev or below
We also discussed the potential addition of Nerandomilast (Jascayd) , which is a new FDA approved (July 2025) treatment options for adults with IPF. It is a preferential inhibitor of phosphodiesterase-E4B and has been shown to reduce forced
vital capacity decline versus placebo.
Last echocardiogram was normal left ventricular function-proBNP negative- doubt cardiogenic component
Monitor blood sugar.
Insulin supplementation as needed-especially in light of steroids
DVT prophylaxis-on Lovenox.
Nutrition
Early mobilization.
Favor if blood sugars/insulin can tolerate prednisone 60 mg daily for 1 week, then 50 mg daily for 1 week dominant 40 mg daily with subsequent taper for outpatient pulmonary
Selene reviewed with at bedside-pathophysiology of pulmonary fibrosis, potential etiologies-steroid responsive her steroid unresponsive, and treatment options including ofev and Jascayd reviewed with them
Respiratory status is stabilized-slow prednisone to patient pulmonary follow-up with supplemental if qualifies-pulmonary will sign off please call with questions
Last saw Dr. Meza 07/26/25-outpatient pulmonary dilation in the next 1-2 weeks
Diagnostic data:
CT chest 04/27/25: Widespread prominent bilateral interstitial markings especially peripherally most predominantly in the right upper lobe.� Acute versus chronic interstitial process..
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
PFTs 07/26/25: FEV1 2.33L 77%, FVC 2.57L 62%, ratio 91.� TLC 3.28L 44%, DLCO 48% (severe restriction, moderate diffusion impairment)
PFTs 05/04/25: FEV1 2.12L 65%, FVC 2.38L 53%, ratio 89.� TLC 3.13L 42%, DLCO 47% (severe restriction, moderate diffusion).
PSG/Split 01/11/13: AHI 22.3, O2 rudy 73%, CPAP titrated to 16cm water
PSG 07/24/17: AHI 41, O2 rudy 70%.
ECHO 06/12/25: Normal left ventricular size and function. Normal regional wall motion. Mild concentric left ventricular hypertrophy. LV ejection fraction is 55-60% by Haddad's method of discs. Normal diastolic function. Upper normal right
ventricular size and normal function. No tricuspid regurgitation is seen. Right heart pressures could not be determined.� No prior study available for comparison.
Subjective Data
-
Date of Service:
Date of Service: October 26, 2025
Chief Complaint: Pulmonary Follow Up and Dyspnea Follow Up
Subjective:
Feels better, still has dyspnea on exertion but improved, no chest congestion, productive cough
Review of Systems
General: Other (Per HPI)
Objective Data
Data Reviewed
Vital Signs / I&O:
Vital Signs
Temp Pulse Resp BP Pulse Ox
97.9 F 54 18 127/74 94
10/26/25 07:55 10/26/25 07:58 10/26/25 07:55 10/26/25 07:58 10/26/25 08:00
Intake and Output
10/25/25 10/26/25 10/27/25
06:59 06:59 06:59
Intake Total 1020 / 1020 660 / 660
Balance 1020 / 1020 660 / 660
SaO2: 94
Nasal Cannula flow liters per minute: 2
Physical Exam
General: Respiratory Distress (n) and Comfortable
HEENT: Normocephalic, Anicteric and Moist Mucous Membranes
Cardiovascular: Regular Rhythm
Respiratory: Wheeze (n), Crackles ( bibasilar snf up), Rhonchi (n), Non-Labored Respirations (n), Accessory Resp Muscle Use (n) and Stridor (n)
GI: Soft, Non Distended and Non Tender
Neurology: Awake, Alert and No Motor Deficits
Skin: Warm, Good Color, Cyanosis (n), Jaundice (n) and Rash (n)
Labs/Micro/Reports
Lab Data
10/25/25 06:56
10/26/25 09:08
Microbiology
10/23/25 12:26 Nasal Swab Influenza Types A & B (YANNI) - Final
Negative for Influenza A & B, NAAT
Negative results must be combined with clinical observations
and patient history.
Nucleic Acid Amplification test (NAAT)performed on the
[employer] ID NOW platform.
[2025-10-26 11:19] VITALS: BP 124/58
[2025-10-26 11:51] LABS: Glucose - Point of Care 221 mg/dl (70-99)
--- NOTE | 2025-10-26 11:55 | CM ---
Addendum entered by Dominga Bojorquez 10/26/25 13:06:
Pt is discharged to home with [facility] and home O2; needs O2 with exertion. DME company is [employer]. Kamaljit from [employer] will meet with the pt bedside and provide a portable tank.
will be driving pt home
Original Note:
IA completed. IMM given and placed on chart. LIves with hi and TONE in an apartment.Pt is IND in ADLs and IADLs. NO hx of HH, SNF, home O2. DME: [employer] in [place]. No insecurities identified, Confirmed PCP, RX , insurance and drug coverage
PCP:Dr. Heart
Rx: [facility]
Uses CPAP and is hoping to be placed on home O2 due to SOB. Pt is scheduled to have a home O2 assessment today
Plan: Home with O2 if indicated
[2025-10-26 12:37] VITALS: O2SAT 83; O2SAT 94
[2025-10-26] MEDS: NOVOLOG FLEXPEN-HIGH RESISTANCE 4 UNITS SC (12:42)
--- NOTE | 2025-10-26 12:48 | W.PN.HOSP.TC ---
Addendum entered and electronically signed by Beverly Sifuentes MD 10/26/25 13:39:
Resting saturation: 94%
exertion RA: 83%
Exertion on oxygen: 94% on 2L
Original Note:
Today's Communication/Plan
-
dc home with home O2 setup and nebulizer machine
Assessment / Plan
Assessment / Plan
Assessment:
Exertional Tachycardia/Hypoxia/Dizziness, possibly related interstitial lung disease
- CT chest negative for PE, however does show signs of acute exacerbation of chronic interstitial fibrosis with possibility of superimposed pneumonitis.
- Procalcitonin negative, observe off antibiotic
- s/p IV steroid course; taper at discharged
- resume Trelegy at discharge.
- continue DuoNeb prn with also nebulizer DME to be arranged
- pulmonary follow up outpatient
- home O2 evaluation 10/26 with myself and RN. patient desats to 83% with prolonged ambulation, requiring 2L NC for recovery
*Patient is in need of oxygen at 2 liters/minute via nasal cannula continuously due to pulse oximetry of 83% on room air with ambulation. Oxygen will help to improve hypoxemia. Patient is mobile within the home. DuoNeb therapy has been tried and is
ineffective in treating hypoxemia related symptoms. Oxygen is needed to improve symptoms.*
Exertional tachycardia
- EKG with PACs
- Echo 06/08 with preserved EF. consider repeating echo if do not improve
Diabetes Mellitus, Type II
- continue Glargine 40 units
- Novolog 30 units with dinner time
- continue high SSI
- A1c: 6.5%
Panhypopituitarism
- continue levothyroxine
- continue prednisone/Decadron. Restart home dose prednisone once done with Decadron
- continue testosterone
Mild hyperkalemia
Monitor
Hyponatremia
- follow BMP
Essential Hypertension
- continue lisinopril
Hyperlipidemia
- continue atorvastatin
Obstructive Sleep Apnea
- Patient reports compliance with CPAP
DVT ppx: Lovenox
Code: Full
More than 30 minutes spent in discharge including
Final examination of the patient
Summarizing hospital stay
Instructions for continuing care to all relevant caregivers
Preparation of discharge records, prescriptions, and referral forms
Total time spent (in minutes): 41
Anticipated Discharge: Today
Subjective/Interval History
-
Date of Service: October 26, 2025
83% upon ambulation
denies SOB at rest
Objective Data
-
Labs:
Laboratory Results
10/26/25
09:08
Sodium 138
Potassium 5.1
Chloride 103
Carbon Dioxide 27
BUN 26 H
Creatinine 0.8
Glucose 201 H
Calcium 9.4
Vital Signs:
Vital Signs
Temp Pulse Resp BP Pulse Ox
97.4 F 52 18 124/58 98
10/26/25 11:19 10/26/25 11:19 10/26/25 11:19 10/26/25 11:19 10/26/25 11:19
I&O
10/25/25 10/26/25 10/27/25
06:59 06:59 06:59
Intake Total 1020 / 1020 660 / 660
Balance 1020 / 1020 660 / 660
Physical Exam
-
General: No Apparent Distress
HEENT: Normocephalic and Atraumatic
Respiratory: Negative Wheezes
Cardiac: Regular Rhythm and S1/S2
GI: Soft
Musculoskeletal: No Edema
Neuro: AO x 3
Psych: Calm
Data Reviewed
-
Total Time Spent with Patient (in minutes): 41
Labs: Labs Reviewed by me
--- NOTE | 2025-10-26 12:49 | PTCARENOTE ---
This pt's pulse ox was 94% on room air at rest. I walked this pt about 350 ft. pulse ox dropped to 83% at the lowest shelter through, pt took about 2 min to get the pulse ox to 93% at rest in room air. & GRZEGORZ made aware.
--- NOTE | 2025-10-26 13:05 | CM ---
Addendum entered by Vita Juarez 10/26/25 14:09:
Oxygen delivered bedside.
Original Note:
Faxed clinicals to [employer] at [phone] for home oxygen and nebulizer. TT to liaison.
--- NOTE | 2025-10-26 13:39 | W.DCSUMMARY ---
Discharge Summary
Discharge Data
Date of Admission: 10/25/25
Date of Discharge: 10/26/25
-
Pending Results: No
Hospital Course
75 y/o M, past medical history of insulin dependent diabetes mellitus, panhypopituitarism, hypertension, obstructive sleep apnea and recently diagnosed interstitial lung disease who presents with exertional tachycardia and SOB while at 1st visit
with pulmonary rehab. 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 Patient was started on IV
steroids and procal was negative, therefore not requiring antibiotics. Pulmonary was consulted. Patients symptoms gradually improved on IV steroids; he was discharged on oral steroid. He will continue Trelegy and also prn nebulized bronchodilators.
Patient will follow up with pulmonary to discuss ILD serologies and for consideration of Ofev or Jascayd initiation. Patient qualified for continuous O2 which was setup.
He was discharged home 10/26/25.
Discharge Plan
-
Patient Disposition: Home (Routine Discharge)
Discharge Diagnosis/Procedures: acute ILD flare
Condition: Fair
Diet: Diabetic, Carb Controlled
Activity: No restrictions
Bathing Restrictions: None
Referrals:
Maicol Heart DO [Family Provider, Family Practice]
Maria Isabel Castro DO [Active, Pulmonary Medicine] - in one to two weeks
Referral Note: IPF flare
Prescriptions:
New
ipratropium-albuterol 0.5 mg-3 mg(2.5 mg base)/3 mL Solution For Nebulization
3 ml inhalation R Q4HPRN PRN (Reason: shortness of breath/wheeze) Qty: 90 0RF
prednisone 10 mg tablet
10 mg PO DIRECTED Qty: 150 0RF
Rx Instructions:
60mg QD x 1 week, 50mg QD x 1 week, 40mg QD x 1 week, 30mg QD x 1 week, 20mg QD x 1 week, 10mg QD x 1 week
Continued
atorvastatin 20 MG tablet
20 mg PO HS
levothyroxine 150 MCG tablet
150 mcg PO DAILY
lisinopril 10 mg Tablet
10 mg PO DAILY
insulin aspart U-100 [Novolog FlexPen U-100 Insulin] 100 unit/mL (3 mL) Insulin Pen
30 sliding scale dose SC QPM
testosterone 1.62 % (40.5 mg/2.5 gram) Gel In Packet
40.5 mg topical DAILY
insulin glargine U-300 conc [Toujeo SoloStar U-300 Insulin] 300 unit/mL (1.5 mL) Insulin Pen
40 unit SC DAILY
Trelegy Ellipta 100-62.5-25 mcg Blister With Device
1 inh INHALATION R DAILY
albuterol sulfate 90 mcg/actuation Hfa Aerosol Inhaler
2 puff INHALATION R Q6HPRN PRN (Reason: sob) Qty: 8.5 0RF
Held
prednisone 5 mg Tablet
5 mg PO DAILY
Hold Instructions: resume after steroid taper prescription is complete
Discharge Orders:
Discharge Patient (As Directed); Ordered 10/26/25
Ordered By: Beverly Sifuentes
Discharge Date and Time
Print Language: ROMANIAN
[2025-10-26 14:49] VITALS: BP 137/72
== END 2025-10-26 15:11 | disposition home or self-care (01) | DRG 197 ==
LOC: 4 EAST ACU 11:19
PROVIDERS: Emergency Medicine; Internal Medicine; Internal Medicine Critical Care Medicine; Physician Assistant Medical; ADMITTING PHYSICIAN Internal Medicine; ATTENDING PHYSICIAN Internal Medicine; EMERGENCY PHYSICIAN Emergency Medicine; FAMILY PHYSICIAN Family Medicine
DX: J84.9 Interstitial pulmonary disease, unspecified (principal); E23.0 Hypopituitarism; E87.1 Hypo-osmolality and hyponatremia; J84.10 Pulmonary fibrosis, unspecified; Z11.52 Encounter for screening for COVID-19; E11.65 Type 2 diabetes mellitus with hyperglycemia; I10 Essential (primary) hypertension; E78.5 Hyperlipidemia, unspecified; G47.33 Obstructive sleep apnea (adult) (pediatric); E87.5 Hyperkalemia; E66.9 Obesity, unspecified; Z68.33 Body mass index [BMI] 33.0-33.9, adult; J98.4 Other disorders of lung; Z79.4 Long term (current) use of insulin; Z79.899 Other long term (current) drug therapy
CPT/HCPCS: 71046; 71275; 80048; 80053; 82962; 83036; 83735; 83880; 84145; 84484; 85025; 85027; 85610; 85652; 86140; 87502; 87811; 93005; 94640; 94660; 96374; 97162; 97166; 97535; 99285; Q9967